=== PATIENT | female | born 1960 | race Caucasian/White ===

== ENCOUNTER 2024-11-07 06:46 | Day surgery (SDC) | payer OTHER ==
[~2024-11-07] VITALS: Ht 165.1 cm; Wt 87.1 kg
[2024-11-07] VITALS (10 sets, daily range): BP systolic 111–139; BP diastolic 68–80; PULSE 88–95; RESP 14–16; TEMP 97.3–97.7
[2024-11-07] MEDS ORDERED: GLYCOPYRROLATE 0.2 MG/ML 5 ML VIAL ONE (07:20)
[2024-11-07] MEDS ORDERED: ATOR40TA69 PO (07:23)
[2024-11-07] MEDS ORDERED: VENL-83 PO (07:23)
[2024-11-07] MEDS ORDERED: ROPI4TAB22 PO (07:23)
[2024-11-07] MEDS ORDERED: OXYB5TAB20 PO (07:23)
[2024-11-07] MEDS ORDERED: TIRZ5PEN SQ (07:23)
[2024-11-07] MEDS ORDERED: METF-444 PO (07:23)
[2024-11-07] MEDS: 0.9%NACL 1000ML 1,000 ML IV ONE (07:27)
[2024-11-07] MEDS ORDERED: LIDOCAINE PF 100MG/5ML (2%) SYRINGE 5ML ONE ×2 (08:35→08:55)
== END 2024-11-07 09:50 | disposition home or self-care (01) ==
LOC: ENDO 06:46 → DAH 06:46 → ENDO 09:50
PROVIDERS: ATTEND Surgery
DX: R12 Heartburn (principal); K29.50 Unspecified chronic gastritis without bleeding; K22.89 Other specified disease of esophagus; K31.89 Other diseases of stomach and duodenum; K21.00 Gastro-esophageal reflux disease with esophagitis, without bleeding; E66.9 Obesity, unspecified; F32.A Depression, unspecified; E11.9 Type 2 diabetes mellitus without complications; G25.81 Restless legs syndrome; G43.909 Migraine, unspecified, not intractable, without status migrainosus; E78.00 Pure hypercholesterolemia, unspecified; E66.01 Morbid (severe) obesity due to excess calories; F41.9 Anxiety disorder, unspecified; Z68.33 Body mass index [BMI] 33.0-33.9, adult; Z79.82 Long term (current) use of aspirin; Z79.84 Long term (current) use of oral hypoglycemic drugs; Z79.899 Other long term (current) drug therapy
CPT/HCPCS: 43239; 82948 ×2; J7030; J2003 ×2; J2704; J3490; A4620; A4215 ×2; A4223; A4222; A4221; A4663; A4606